=== PATIENT | male | born 2000 | race African-American/Black ===

== ENCOUNTER 2023-07-06 15:31 | Emergency (ER) | payer MEDICAID ==
[~2023-07-06] VITALS: Ht 182.9 cm; Wt 77.1 kg
[2023-07-06 16:24] VITALS: BP 130/78
--- OUTSIDE RECORDS SUMMARY | 2023-07-06 17:36 | XMS ---
PreManage Notification: TERESA BRISCOE Security Remotely Piloted Vehicle Controller Events No recent Security Events currently on file CRITERIA MET - 6 ED Visits in 6 Months - [facility] [place] - 2 Visits in 30 Days CARE PROVIDERS -, [place]- Dentist: It Architecture Consultant [facility] PHONE: [phone] SINA ROSENBERG [facility] Current PHONE: Unknown [facility], Clinic/Center: Dental Current INCMarie PHONE: Unknown [facility] has no Care Guidelines for this patient. E.DMarie VISIT COUNT (12 MO.) 4 Godfrey Roque [facility] 1 ZULAY Mancilla 1 [facility] TOTAL 8 NOTE: Visits indicate total known visits. ED/UCC VISIT TRACKING (12 MO.) 07/06/2023 15:32 ZULAY Aranda [place] TYPE: Emergency COMPLAINT: - LT KNEE PAIN 06/10/2023 12:57 Bandar Arevalo [facility] TYPE: Emergency DIAGNOSES: - Encounter for fitting and adjustment of other specified devices - Knee Injury - Medical Problem (Re-evaluation) 03/28/2023 18:04 [facility] TYPE: Emergency DIAGNOSES: 0. Pain in left knee 0. PT IS BACK CHECK LT KNEE WRAP 1. Encounter for removal of sutures 2. Immunization not carried out because of patient decision for unspecified reason 2. Nicotine dependence, cigarettes, uncomplicated 2. Unvaccinated for COVID-19 [facility]2023 16[facility] COMPLAINT: - lft knee pain 02/24/2023 14:54 Godfrey [facility] TYPE: Emergency DIAGNOSES: 0. Other acute postprocedural pain 0. Pain in left leg 0. IN PAIN WANTS DR TO SIGN A FORM 1. Other acute postprocedural pain 2. Immunization not carried out for unspecified reason 2. Pain in left leg 2. Personal history of nicotine dependence 2. Procedure and treatment not carried out because of patient's decision for unspecified reasons 2. Unvaccinated for COVID-19 02/10/2023 18:25 [facility] TYPE: Emergency DIAGNOSES: 0. Pain in left knee 0. LT KNEE PAIN 1. Unspecified fracture of left patella, subsequent encounter for closed fracture with routine healing 2. Immunization not carried out because of patient decision for unspecified reason 2. Nicotine dependence, cigarettes, uncomplicated 2. Unvaccinated for COVID-19 01/23/2023 20:38 [facility] TYPE: Emergency DIAGNOSES: 0. Pain in left knee 0. LT KNEE PAIN 1. Pain in left knee 2. Immunization not carried out because of patient refusal 2. Procedure and treatment not carried out because of patient's decision for unspecified reasons 2. Unvaccinated for COVID-19 12/16/2022 12:13 [facility]. TYPE: Emergency DIAGNOSES: - Pain in right foot INPATIENT VISIT TRACKING (12 MO.) No inpatient visits to display in this time frame [email or web address]
== END 2023-07-06 16:27 | disposition home or self-care (01) ==
LOC: ED 15:31
DX: S82.002D Unspecified fracture of left patella, subsequent encounter for closed fracture with routine healing (principal); X58.XXXD Exposure to other specified factors, subsequent encounter; Z98.890 Other specified postprocedural states
CPT/HCPCS: 99283